=== PATIENT | male | born 1965 | race Caucasian/White ===

== ENCOUNTER 2016-11-11 06:02 | Emergency (ER) | payer SELFPAY ==
[2016-11-11] VITALS (7 sets, daily range): BP systolic 105–248; BP diastolic 58–111; PULSE 89–118; RESP 16–18; TEMP 97.8; O2SAT 96–99
[~2016-11-11 06:02] MED LIST: AMOX500T PO; CITA-48 PO; CITA20TA4 PO; CLON.1 PO; CORTIS10A RIGHT EAR; GLIP5TAB8 PO; LISI-357 PO; LORTA5 PO; METF1000 PO; ZOCO40TA PO
[2016-11-11] MEDS ORDERED: METF1000 PO (06:31)
[2016-11-11] MEDS ORDERED: VYTO10TA8 PO (06:31)
[2016-11-11] MEDS ORDERED: GLIP5TAB8 PO (06:31)
[2016-11-11] MEDS ORDERED: LANTUS2P SQ ×2 (06:31→12:56)
[2016-11-11] MEDS ORDERED: CYCL5TAB PO (06:31)
[2016-11-11] MEDS ORDERED: CLON1TAB PO (06:31)
[2016-11-11] MEDS ORDERED: FLUO1TAB3 PO (06:31)
[2016-11-11] MEDS ORDERED: LISI-515 PO (06:31)
[2016-11-11] MEDS ORDERED: TRAM50TA PO (06:31)
[2016-11-11] MEDS ORDERED: FLUO20CA12 PO (06:31)
--- NOTE | 2016-11-11 07:01 | RADRPT ---
EXAM DATE/TIME: 11/11/2016 06:39 [facility] COMPARISON: CHEST SINGLE AP, November 29, 2013, 4:17. INDICATIONS : Chest pain. MEDICAL HISTORY : Diabetes mellitus type II. SURGICAL HISTORY : None. ENCOUNTER: Initial ACUITY: 1 day PAIN SCORE: 4/10 LOCATION: Bilateral chest FINDINGS: A single view of the chest demonstrates the lungs to be symmetrically aerated without evidence of mas s, infiltrate or effusion. The cardiomediastinal contours are unremarkable. Osseous structures are intact. CONCLUSION: No acute disease. Wilner Gomez MD FACR on November 11, 2016 at 6:59 Board Certified Radiologist. This report was verified electronically.
[2016-11-11] MEDS ORDERED: SODIUM CHLOR 0.9% 1000 ML INJ 1,000 ML IV SCH (07:08)
--- NOTE | 2016-11-11 07:13 | PD ---
HPI Chief Complaint: Chest Pain Time Seen by Provider: 07:00 Travel History International Travel<30 days: No Contact w/Intl Traveler<30days: No Traveled to known affect area: No History of Present Illness HPI The patient is a 51-year-old male who presents to the emergency department for epigastric abdominal pain. The patient states he was awakened several hours prior to arrival with epigastric abdominal pain that radiates up into the substernal chest, burning, associated with mild nausea, but no vomiting. The patient does have a history of similar pain in the past secondary to gastritis. The patient also notes a history of hypertension, hyperlipidemia and diabetes. The patient has been out of his Lantus for the last 2 days. Continues to take his metformin and glyburide. The patient states his blood sugars have been running in the 400s. He denies any previous history of CAD or previous [place]. He denies any history of dissection, pancreatitis, or pulmonary embolism. The patient's symptoms are moderate, there are no current alleviating or exacerbating factors. The patient's primary physician is at the [facility]. PFSH Past Medical History Asthma: Yes Anxiety: Yes Depression: Yes Cardiovascular Problems: Yes High Cholesterol: Yes Diabetes: Yes Patient Takes Glucophage: No Diminished Hearing: No Endocrine: Yes Gastrointestinal Disorders: Yes (-IBS) GERD: Yes Glaucoma: No Genitourinary: No Hypertension: Yes Immune Disorder: No Implanted Vascular Access Dvce: No Musculoskeletal: No Neurologic: No Psychiatric: No Reproductive: No Respiratory: Yes Immunizations Current: No Migraines: Yes Thyroid Disease: No Past Surgical History Insulin Pump: No Joint Replacement: No Oral Surgery: Yes Pacemaker: No Other Surgery: Yes (DENTAL SURGERY) Social History Alcohol Use: No Tobacco Use: No Substance Use: No Allergies-Medications (Allergen,Severity, Reaction): Coded Allergies: Sulfa (Sulfonamide Antibiotics) (Unverified Allergy, Severe, Shortness of Breath, 11/11/16) PT STATED IT CAUSED ASTHMA ATTACK, SOB, ANXIOUS sulfamethoxazole (Unverified Allergy, Severe, RASH , TROUBLE BREATHING , ) trimethoprim (Unverified Allergy, Severe, RASH , TROUBLE BREATHING , ) Reported Meds & Prescriptions Reported Meds & Active Scripts Active Reported Lisinopril 20 Mg Tab 20 Mg PO BID Vytorin (Ezetimibe-Simvastatin) 10-20 Mg Tab 1 Tab PO HS Lantus Inj (Insulin Glargine) 1,000 Unit/10 Ml Vial 22 Units SQ BID Glipizide 5 Mg Tab 5 Mg PO DAILY Take 30 minutes before a meal Metformin (Metformin HCl) 1,000 Mg Tab 1,000 Mg PO BIDPC With meals Fluoxetine (Fluoxetine HCl) 20 Mg Tab 20 Mg PO HS Fluoxetine (Fluoxetine HCl) 20 Mg Capsule 40 Mg PO DAILY Tramadol (Tramadol HCl) 50 Mg Tab 50 Mg PO Q4H PRN Flexeril (Cyclobenzaprine HCl) 5 Mg Tab 5 Mg PO TID Clonazepam 1 Mg Tab 1 Mg PO BID Review of Systems Except as stated in HPI: all other systems reviewed are Neg General / Constitutional: No: Fever HENT: Positive: Lightheadedness Cardiovascular: Positive: Chest Pain or Discomfort Respiratory: No: Shortness of Breath Gastrointestinal: Positive: Nausea, Abdominal Pain, No: Vomiting, Diarrhea Musculoskeletal: Positive: Weakness Neurologic: Positive: Dizziness Physical Exam Narrative GENERAL: Awake, alert, pleasant 51-year-old male who appears his stated age and appears in moderate distress. SKIN: Focused skin assessment warm/dry. HEAD: Atraumatic. Normocephalic. EYES: Pupils equal and round. No scleral icterus. No injection or drainage. ENT: No nasal bleeding or discharge. Mucous membranes pink and moist. NECK: Trachea midline. No JVD. CARDIOVASCULAR: Regular, tachycardic with a heart rate of 115. RESPIRATORY: No accessory muscle use. Clear to auscultation. Breath sounds equal bilaterally. GASTROINTESTINAL: Abdomen soft, mild epigastric tenderness, obese. No rebound tenderness. MUSCULOSKELETAL: No obvious deformities. No clubbing. No cyanosis. No edema. NEUROLOGICAL: Awake and alert. No obvious cranial nerve deficits. Motor grossly within normal limits. Normal speech. PSYCHIATRIC: Appropriate mood and affect; insight and judgment normal. Data Data Last Documented VS Vital Signs Date Time Temp Pulse Resp B/P (MAP) Pulse Ox O2 Delivery O2 Flow Rate FiO2 11/11/16 12:21 16 11/11/16 11:21 Room Air 11/11/16 11:21 90 138/80 (99) 96 11/11/16 06:20 97.8 Orders Orders Electrocardiogram (11/11/16 06:35) Complete Blood Count With Diff (11/11/16 06:35) Basic Metabolic Panel (Bmp) (11/11/16 06:35) Ckmb (Isoenzyme) Profile (11/11/16 06:35) Troponin I (11/11/16 06:35) Chest, Single Ap (11/11/16 06:35) Iv Access Insert/Monitor (11/11/16 06:35) Ecg Monitoring (11/11/16 06:35) Oxygen Administration (11/11/16 06:35) Oximetry (11/11/16 06:35) Hepatic Functional Panel (11/11/16 07:07) Lipase (11/11/16 07:07) Labetalol Inj (Trandate Inj) (11/11/16 07:15) Morphine Inj (Morphine Inj) (11/11/16 07:15) Ondansetron Inj (Zofran Inj) (11/11/16 07:15) Sodium Chlor 0.9% 1000 Ml Inj (Ns 1000 M (11/11/16 07:08) Sodium Chloride 0.9% Flush (Ns Flush) (11/11/16 07:15) Famotidine Inj (Pepcid Inj) (11/11/16 07:15) Al-Mag Hy-Si 40-40-4 Mg/Ml Liq (Mag-Al P (11/11/16 07:15) Lidocaine 2% Viscous (Xylocaine 2% Visco (11/11/16 07:15) Ct Abd/Pel W/O Iv Contrast (11/11/16 ) Lactic Acid (11/11/16 08:05) Beta Hydroxybutyrate (Acetone) (11/11/16 08:05) Sodium Chlor 0.9% 1000 Ml Inj (Ns 1000 M (11/11/16 08:15) Sodium Chlorid 0.9% 500 Ml Inj (Ns 500 M (11/11/16 08:15) Morphine Inj (Morphine Inj) (11/11/16 08:15) Resp Blood Gas Venous (11/11/16 ) Insulin Human Regular Inj (Novolin R Inj (11/11/16 09:15) Sodium Chlor 0.9% 1000 Ml Inj (Ns 1000 M (11/11/16 09:15) Arterial Blood Gas (Abg) (11/11/16 08:57) Insulin Detemir Inj (Levemir Inj) (11/11/16 09:15) Basic Metabolic Panel (Bmp) (11/11/16 12:00) Sodium Chlor 0.9% 1000 Ml Inj (Ns 1000 M (11/11/16 09:30) Labs Laboratory Tests Test 11/11/16 07:20 11/11/16 08:28 11/11/16 08:57 11/11/16 12:00 White Blood Count 8.6 TH/MM3 Red Blood Count 5.44 MIL/MM3 Hemoglobin 16.7 GM/DL Hematocrit 50.9 % Mean Corpuscular Volume 93.6 FL Mean Corpuscular Hemoglobin 30.7 PG Mean Corpuscular Hemoglobin Concent 32.8 % Red Cell Distribution Width 13.2 % Platelet Count 353 TH/MM3 Mean Platelet Volume 7.9 FL Neutrophils (%) (Auto) 66.1 % Lymphocytes (%) (Auto) 20.8 % Monocytes (%) (Auto) 7.2 % Eosinophils (%) (Auto) 4.9 % Basophils (%) (Auto) 1.0 % Neutrophils # (Auto) 5.7 TH/MM3 Lymphocytes # (Auto) 1.8 TH/MM3 Monocytes # (Auto) 0.6 TH/MM3 Eosinophils # (Auto) 0.4 TH/MM3 Basophils # (Auto) 0.1 TH/MM3 CBC Comment DIFF FINAL Differential Comment Blood Urea Nitrogen 9 MG/DL 6 MG/DL Creatinine 1.10 MG/DL 1.10 MG/DL Random Glucose 310 MG/DL 264 MG/DL Calcium Level 8.8 MG/DL 8.1 MG/DL Sodium Level 132 MEQ/L 135 MEQ/L Potassium Level 4.1 MEQ/L 3.8 MEQ/L Chloride Level 99 MEQ/L 104 MEQ/L Carbon Dioxide Level 14.5 MEQ/L 19.3 MEQ/L Anion Gap 19 MEQ/L 12 MEQ/L Estimat Glomerular Filtration Rate 71 ML/MIN 71 ML/MIN Total Creatine Kinase 62 U/L Troponin I 0.03 NG/ML B-Hydroxybutyrate 5.18 MMOL/L Lactic Acid Level 0.8 mmol/L Total Bilirubin 0.5 MG/DL Direct Bilirubin 0.1 MG/DL Indirect Bilirubin 0.4 MG/DL Aspartate Amino Transf (AST/SGOT) 26 U/L Alanine Aminotransferase (ALT/SGPT) 36 U/L Alkaline Phosphatase 113 U/L Total Protein 7.1 GM/DL Albumin 3.4 GM/DL Lipase 140 U/L Blood Gas Puncture Site RT BRACHIAL Blood Gas Patient Temperature 98.6 Blood Gas HCO3 16 mmol/L Blood Gas Base Excess -9.9 mmol/L Blood Gas Oxygen Saturation 94 % Arterial Blood pH 7.28 Arterial Blood Partial Pressure CO2 34 mmHG Arterial Blood Partial Pressure O2 94 mmHG Arterial Blood Oxygen Content 20.5 Vol % Arterial Blood Carboxyhemoglobin 1.8 % Arterial Blood Methemoglobin 1.2 % Blood Gas Hemoglobin 15.4 G/DL Oxygen Delivery Device NONE Blood Gas Inspired Oxygen 21 % MDM Medical Decision Making Medical Screen Exam Complete: Yes Emergency Medical Condition: Yes Medical Record Reviewed: Yes Interpretation(s) EKG reveals sinus tachycardia with a heart rate of 109. Nonspecific T-wave changes. Last Impressions Chest X-Ray 11/11/16 0635 Signed Impressions: Service Date/Time: Friday, November 11, 2016 06:39 - CONCLUSION: No acute disease. Wilner Gomez MD FACR CT of the abdomen and pelvis reveals no acute CT findings to explain patient's epigastric pain. Normal appendix. Laboratory Tests Test 11/11/16 07:20 11/11/16 08:28 11/11/16 08:57 11/11/16 12:00 White Blood Count 8.6 TH/MM3 Red Blood Count 5.44 MIL/MM3 Hemoglobin 16.7 GM/DL Hematocrit 50.9 % Mean Corpuscular Volume 93.6 FL Mean Corpuscular Hemoglobin 30.7 PG Mean Corpuscular Hemoglobin Concent 32.8 % Red Cell Distribution Width 13.2 % Platelet Count 353 TH/MM3 Mean Platelet Volume 7.9 FL Neutrophils (%) (Auto) 66.1 % Lymphocytes (%) (Auto) 20.8 % Monocytes (%) (Auto) 7.2 % Eosinophils (%) (Auto) 4.9 % Basophils (%) (Auto) 1.0 % Neutrophils # (Auto) 5.7 TH/MM3 Lymphocytes # (Auto) 1.8 TH/MM3 Monocytes # (Auto) 0.6 TH/MM3 Eosinophils # (Auto) 0.4 TH/MM3 Basophils # (Auto) 0.1 TH/MM3 CBC Comment DIFF FINAL Differential Comment Blood Urea Nitrogen 9 MG/DL 6 MG/DL Creatinine 1.10 MG/DL 1.10 MG/DL Random Glucose 310 MG/DL 264 MG/DL Calcium Level 8.8 MG/DL 8.1 MG/DL Sodium Level 132 MEQ/L 135 MEQ/L Potassium Level 4.1 MEQ/L 3.8 MEQ/L Chloride Level 99 MEQ/L 104 MEQ/L Carbon Dioxide Level 14.5 MEQ/L 19.3 MEQ/L Anion Gap 19 MEQ/L 12 MEQ/L Estimat Glomerular Filtration Rate 71 ML/MIN 71 ML/MIN Total Creatine Kinase 62 U/L Troponin I 0.03 NG/ML B-Hydroxybutyrate 5.18 MMOL/L Lactic Acid Level 0.8 mmol/L Total Bilirubin 0.5 MG/DL Direct Bilirubin 0.1 MG/DL Indirect Bilirubin 0.4 MG/DL Aspartate Amino Transf (AST/SGOT) 26 U/L Alanine Aminotransferase (ALT/SGPT) 36 U/L Alkaline Phosphatase 113 U/L Total Protein 7.1 GM/DL Albumin 3.4 GM/DL Lipase 140 U/L Blood Gas Puncture Site RT BRACHIAL Blood Gas Patient Temperature 98.6 Blood Gas HCO3 16 mmol/L Blood Gas Base Excess -9.9 mmol/L Blood Gas Oxygen Saturation 94 % Arterial Blood pH 7.28 Arterial Blood Partial Pressure CO2 34 mmHG Arterial Blood Partial Pressure O2 94 mmHG Arterial Blood Oxygen Content 20.5 Vol % Arterial Blood Carboxyhemoglobin 1.8 % Arterial Blood Methemoglobin 1.2 % Blood Gas Hemoglobin 15.4 G/DL Oxygen Delivery Device NONE Blood Gas Inspired Oxygen 21 % Differential Diagnosis Differential diagnosis includes gastritis, pancreatitis, GERD, hiatal hernia, dissection, inferior myocardial infarction, pulmonary embolism, perforated viscus. Narrative Course IV was established, labs are drawn and sent, and the patient was placed on cardiac telemetry monitoring and continuous pulse oximetry monitoring. EKG was ordered and interpreted. Chest x-ray was obtained. The patient was a administer morphine, Zofran, Pepcid, and GI cocktail. The patient was also placed on IV fluids. The patient's chest x-ray was unremarkable. The patient' s EKG reveals sinus tachycardia with a heart rate of 109. The patient was reevaluated at 8:12 AM, his epigastric burning pain has resolved. However, he continues to have cramping abdominal pain. Therefore, the patient was administered a second dose of morphine. The patient's CO2 is low at 120 at 14.5 , anion gap is 19, therefore, lactic gas and a beta hydroxy were ordered. The patient is not hypoxic, heart rate came down to 90, I doubt pulmonary embolism with no shortness of breath and symptoms mostly consisting of epigastric abdominal pain and cramping. The patient may have early DKA, he normally takes Lantus 22 units twice a day, last took Lantus 3 days ago. However, he is also on oral diabetic medications. The patient's VBG revealed a pH is 7.277, with beta hydroxy greater than 5, anion gap at 19, probable early DKA. Therefore, the patient was administered 6 units insulin intravenously, another liter of IV fluids, and Levemir 22 units. A repeat BMP will be performed at noon to evaluate the patient's anion gap. The patient's anion gap went from 19 at 12, CO2 elevated to 19.3, his symptoms had significantly improved. He did receive long-acting insulin in the emergency department and I will refill his Lantus and Prozac. Diagnosis Primary Impression: DKA (diabetic ketoacidoses) Qualified Codes: E13.10 - Other specified diabetes mellitus with ketoacidosis without coma Patient Instructions: General Instructions Additional Instructions: Medications as directed. Follow-up with your primary physician. Return if symptoms worsen or progress. Med/Other Pt SpecificInfo: Prescription(s) given Scripts Insulin Glargine Inj (Lantus Inj) 1,000 Unit/10 Ml Vial 22 UNITS SQ BID for Blood Sugar Management, #1 VIAL 3 Refills Prov: Vikash Ibarra MD 11/11/16 Fluoxetine (Prozac) 20 Mg Cap 20 MG PO DAILY, #30 CAP 0 Refills Prov: Vikash Ibarra MD 11/11/16 Disposition: 01 DISCHARGE HOME Condition: Stable Vikash Ibarra MD Nov 11, 2016 07:13
[2016-11-11] MEDS ORDERED: FAMOTIDINE 20 MG/2 ML VIAL IV PUSH ONE (07:15)
[2016-11-11] MEDS ORDERED: ONDANSETRON HCL 4 MG/2 ML VIAL IV PUSH ONE (07:15)
[2016-11-11] MEDS ORDERED: MORPHINE SULFATE 4 MG/ML INJ IV PUSH ONE ×2 (07:15→08:15)
[2016-11-11] MEDS ORDERED: SODIUM CHLORIDE 0.9% FLUSH 10 ML FLUSH IV FLUSH PRN (07:15)
[2016-11-11] MEDS ORDERED: LABETALOL HCL 100 MG/20 ML VIAL IV PUSH ONE (07:15)
[2016-11-11] MEDS ORDERED: ALUMINUM/MAGNESIUM/SIMETH 30 ML CUP PO ONE (07:15)
[2016-11-11] MEDS ORDERED: LIDOCAINE VISCOUS 2% SOLN 15 ML UDC PO ONE (07:15)
[2016-11-11 07:28] LABS: AUTOMATED NEUTROPHIL # 5.7 TH/MM3 (1.8-7.7); BASOPHIL # 0.1 TH/MM3 (0-0.2); EOSINOPHIL # 0.4 TH/MM3 (0-0.4); EOSINOPHIL % 4.9 % (0.0-4.0); HEMATOCRIT 50.9 % (39.0-51.0); HEMO FLAGS DIFF FINAL; LYMPH % 20.8 % (9.0-44.0); LYMPHOCYTE # 1.8 TH/MM3 (1.0-4.8); MEAN CELL VOLUME 93.6 FL (80.0-100.0); MEAN CORPUSCULAR HEMOGLOBIN 30.7 PG (27.0-34.0); MEAN CORPUSCULAR HGB CONC 32.8 % (32.0-36.0); MONO % 7.2 % (0.0-8.0); NEUT % 66.1 % (16.0-70.0); PLATELET COUNT 353 TH/MM3 (150-450); RED BLOOD COUNT 5.44 MIL/MM3 (4.50-5.90); RED CELL DISTRIBUTION WIDTH 13.2 % (11.6-17.2); WHITE BLOOD COUNT 8.6 TH/MM3 (4.0-11.0)
[2016-11-11 07:33] LABS: POTASSIUM 4.1 MEQ/L (3.5-5.1)
[2016-11-11 07:37] LABS: BICARBONATE 14.5 MEQ/L (21.0-32.0)
--- NOTE | 2016-11-11 08:00 | RADRPT ---
EXAM DATE/TIME: 11/11/2016 17:54 [facility] COMPARISON: No previous studies available for comparison. INDICATIONS : Epigastric pain. ORAL CONTRAST: No oral contrast ingested. RADIATION DOSE: 22.36 CTDIvol (mGy) MEDICAL HISTORY : Hypertension. Gastroesophageal reflux disease. Diabetes. SURGICAL HISTORY : None. ENCOUNTER: Initial ACUITY: 1 day PAIN SCALE: 4/10 LOCATION: upper quadrant TECHNIQUE: Volumetric scanning of the abdomen and pelvis was performed. Using automated exposure control and ad justment of the mA and/or kV according to patient size, radiation dose was kept as low as reasonably achievable to obtain optimal diagnostic quality images. DICOM format image data is available electro nically for review and comparison. FINDINGS: LOWER LUNGS: The visualized lower lungs are clear. LIVER: Homogeneous density without lesion. There is no dilation of the biliary tree. No calcified gallston es. SPLEEN: Normal size without lesion. PANCREAS: Within normal limits. KIDNEYS: Normal in size and shape. There is no mass, stone, or hydronephrosis. ADRENAL GLANDS: Within normal limits. VASCULAR: There is no aortic aneurysm. BOWEL/MESENTERY: The stomach, small bowel, and colon demonstrate no acute abnormality. Appendix appears normal. There is no free intraperitoneal air or fluid. ABDOMINAL WALL: Within normal limits. RETROPERITONEUM: There is no lymphadenopathy. BLADDER: No wall thickening or mass. REPRODUCTIVE: Within normal limits. INGUINAL: There is no lymphadenopathy or hernia. MUSCULOSKELETAL: Within normal limits for patient age. CONCLUSION: 1. No acute CT finding to explain patient's epigastric pain. 2. Normal appendix. Ebenezer Brambila MD on November 11, 2016 at 7:55 Board Certified Radiologist. This report was verified electronically.
[2016-11-11] MEDS ORDERED: SODIUM CHLORID 0.9% 500 ML INJ 500 ML IV ONE (08:15)
[2016-11-11] MEDS ORDERED: SODIUM CHLOR 0.9% 1000 ML INJ 1,000 ML IV ONE ×3 (08:15→09:30)
[2016-11-11 09:05] LABS: INDIRECT BILIRUBIN 0.4 MG/DL (0.0-0.8); TOTAL BILIRUBIN ADULT 0.5 MG/DL (0.2-1.0)
[2016-11-11 09:09] LABS: BLOOD GAS BASE EXCESS -9.9 mmol/L (-2-2); BLOOD GAS CARBOXYHEMOGLOBIN 1.8 % (0-4); BLOOD GAS HCO3 16 mmol/L (22-26); BLOOD GAS METHEMOGLOBIN 1.2 % (0-2); BLOOD GAS O2 HGB SATURATION 94 % (90-100); BLOOD GAS OXYGEN CONTENT 20.5 Vol % (12.0-20.0); BLOOD GAS PCO2 34 mmHG (38-42); BLOOD GAS PO2 94 mmHG (61-120); BLOOD GAS TOTAL HGB 15.4 G/DL (12.0-16.0); TEMP CORR TO 98.6
[2016-11-11 09:11] LABS: CRITICAL VALUE YES; DRAW SITE RT BRACHIAL; FIO2 21 %; NUMBER OF ARTERIAL PUNCTURES 1; STAT YES; ULNAR PULSE PRESENT
[2016-11-11] MEDS ORDERED: INSULIN HUMAN REGULAR 1,000 UNITS/10 ML VIAL IV PUSH ONE (09:15)
[2016-11-11] MEDS ORDERED: INSULIN DETEMIR 100 UNITS/ML VIAL SQ SCH (09:15)
[2016-11-11 12:28] LABS: POTASSIUM 3.8 MEQ/L (3.5-5.1)
[2016-11-11 12:31] LABS: BICARBONATE 19.3 MEQ/L (21.0-32.0)
[2016-11-11] MEDS ORDERED: PROZ20CA11 PO (12:56)
--- NOTE | 2016-11-11 13:59 | EKG ---
Date Performed: 11/11/2016 Time Performed: 06:21:20 PTAGE: 51 years EKG: SINUS TACHYCARDIA NONSPECIFIC T-WAVE ABNORMALITY ABNORMAL RHYTHM ECG Compared to prior trac ing no significant change PREVIOUS TRACING : 11/24/2013 06.39 DOCTOR: Tasneem Walters Interpretating Date/Time 11/11/2016 13:55:15
== END 2016-11-11 13:15 | disposition home or self-care (01) ==
LOC: PHEFT 06:02 → PHED 13:15
DX: E13.10 Other specified diabetes mellitus with ketoacidosis without coma (principal); E78.5 Hyperlipidemia, unspecified; I10 Essential (primary) hypertension; J45.909 Unspecified asthma, uncomplicated; K21.9 Gastro-esophageal reflux disease without esophagitis
CPT/HCPCS: 36600; 71010; 74176; 80048; 80076; 82010; 82550; 82805; 83605; 83690; 84484; 85025; 93005; 96361; 96372; 96374; 96375; 96376; 99285; J1815; J2270; J2405; J7030; J7040

== ENCOUNTER 2016-11-15 17:43 | Emergency (ER) | payer SELFPAY ==
[~2016-11-15 17:43] MED LIST changes: +CLON1TAB PO; +CYCL5TAB PO; +FLUO1TAB3 PO; +FLUO20CA12 PO; +LANTUS2P SQ; +LISI-515 PO; +PROZ20CA11 PO; +TRAM50TA PO; +VYTO10TA8 PO
[2016-11-15 17:48] VITALS: BP 145/97; PULSE 119; RESP 24; TEMP 98.8; O2SAT 97
--- NOTE | 2016-11-15 18:25 | PD ---
HPI Chief Complaint: Abdominal Pain Time Seen by Provider: 18:15 Travel History International Travel<30 days: No Contact w/Intl Traveler<30days: No Traveled to known affect area: No History of Present Illness HPI 51 YO M with PMH of DM presents to the ED for evaluation of ~2 hour history of 8 /10 cramping abdominal pain that radiates to the left chest. Gradual onset. No alleviating factors reported. Patient states that the pains worsened by certain movements. He denies fevers, chills, palpitations, shortness of breath , nausea, vomiting. He endorses recent history of constipation, states that he took GoLYTELY and his last bowel movement was yesterday. He was able to eat lunch and breakfast today. No treatment attempt at home. PFSH Past Medical History Asthma: Yes Anxiety: Yes Depression: Yes Cardiovascular Problems: Yes High Cholesterol: Yes Diabetes: Yes Diminished Hearing: No Endocrine: Yes Gastrointestinal Disorders: Yes (-IBS) GERD: Yes Glaucoma: No Genitourinary: No Hypertension: Yes Immune Disorder: No Implanted Vascular Access Dvce: No Musculoskeletal: No Neurologic: No Psychiatric: No Reproductive: No Respiratory: Yes Immunizations Current: No Migraines: Yes Thyroid Disease: No Past Surgical History Insulin Pump: No Joint Replacement: No Oral Surgery: Yes Pacemaker: No Other Surgery: Yes (DENTAL SURGERY) Social History Alcohol Use: No Tobacco Use: No Substance Use: No Allergies-Medications (Allergen,Severity, Reaction): Coded Allergies: Sulfa (Sulfonamide Antibiotics) (Unverified Allergy, Severe, Shortness of Breath, 11/15/16) PT STATED IT CAUSED ASTHMA ATTACK, SOB, ANXIOUS sulfamethoxazole (Unverified Allergy, Severe, RASH , TROUBLE BREATHING , ) trimethoprim (Unverified Allergy, Severe, RASH , TROUBLE BREATHING , ) Reported Meds & Prescriptions Reported Meds & Active Scripts Active Reported [place] Carbonate 150 Mg Cap 150 Mg PO BID Lisinopril 20 Mg Tab 20 Mg PO BID Vytorin (Ezetimibe-Simvastatin) 10-20 Mg Tab 1 Tab PO HS Lantus Inj (Insulin Glargine) 1,000 Unit/10 Ml Vial 22 Units SQ BID Glipizide 5 Mg Tab 5 Mg PO DAILY Take 30 minutes before a meal Metformin (Metformin HCl) 1,000 Mg Tab 1,000 Mg PO BIDPC With meals Fluoxetine (Fluoxetine HCl) 20 Mg Tab 20 Mg PO HS Fluoxetine (Fluoxetine HCl) 20 Mg Capsule 40 Mg PO IN THE AM Tramadol (Tramadol HCl) 50 Mg Tab 50 Mg PO Q4H PRN Flexeril (Cyclobenzaprine HCl) 5 Mg Tab 5 Mg PO TID Clonazepam 1 Mg Tab 1 Mg PO BID Review of Systems Except as stated in HPI: all other systems reviewed are Neg Physical Exam Narrative GENERAL: Morbidly obese white male in no acute distress. SKIN: Focused skin assessment warm/dry. HEAD: Normocephalic. EYES: No scleral icterus. No injection or drainage. NECK: Supple, trachea midline. No JVD or lymphadenopathy. CARDIOVASCULAR: Regular rate and rhythm without murmurs, gallops, or rubs. CHEST: Nontender throughout without deformity or crepitus. RESPIRATORY: Breath sounds equal bilaterally. No accessory muscle use. GASTROINTESTINAL: Abdomen protuberant, soft, nondistended. Tender to palpation of the left upper quadrant. MUSCULOSKELETAL: No cyanosis. Trace edema in the bilateral lower extremities. BACK: Nontender without obvious deformity. No CVA tenderness. Data Data Last Documented VS Vital Signs Date Time Temp Pulse Resp B/P (MAP) Pulse Ox O2 Delivery O2 Flow Rate FiO2 11/15/16 22:05 11/15/16 20:50 102 20 95 Room Air 11/15/16 17:48 98.8 Orders Orders Famotidine Inj (Pepcid Inj) (11/15/16 18:30) Al-Mag Hy-Si 40-40-4 Mg/Ml Liq (Mag-Al P (11/15/16 18:30) Lidocaine 2% Viscous (Xylocaine 2% Visco (11/15/16 18:30) Complete Blood Count With Diff (11/15/16 18:32) Comprehensive Metabolic Panel (11/15/16 18:32) Lipase (11/15/16 18:32) Lactic Acid (11/15/16 18:32) Urinalysis - C+S If Indicated (11/15/16 18:32) Iv Access Insert/Monitor (11/15/16 18:32) Ecg Monitoring (11/15/16 18:32) Oximetry (11/15/16 18:32) Sodium Chloride 0.9% Flush (Ns Flush) (11/15/16 18:45) Electrocardiogram (11/15/16 18:32) Lorazepam Inj (Ativan Inj) (11/15/16 20:15) Labs Laboratory Tests Test 11/15/16 18:35 11/15/16 20:05 White Blood Count 7.1 TH/MM3 Red Blood Count 4.96 MIL/MM3 Hemoglobin 15.5 GM/DL Hematocrit 45.8 % Mean Corpuscular Volume 92.4 FL Mean Corpuscular Hemoglobin 31.2 PG Mean Corpuscular Hemoglobin Concent 33.7 % Red Cell Distribution Width 13.6 % Platelet Count 307 TH/MM3 Mean Platelet Volume 8.2 FL Neutrophils (%) (Auto) 58.5 % Lymphocytes (%) (Auto) 26.2 % Monocytes (%) (Auto) 8.8 % Eosinophils (%) (Auto) 5.5 % Basophils (%) (Auto) 1.0 % Neutrophils # (Auto) 4.1 TH/MM3 Lymphocytes # (Auto) 1.8 TH/MM3 Monocytes # (Auto) 0.6 TH/MM3 Eosinophils # (Auto) 0.4 TH/MM3 Basophils # (Auto) 0.1 TH/MM3 CBC Comment AUTO DIFF Differential Total Cells Counted 100 Neutrophils % (Manual) 60 % Band Neutrophils % 10 % Lymphocytes % 15 % Monocytes % 7 % Eosinophils % 5 % Basophils % 1 % Neutrophils # (Manual) 5.1 TH/MM3 Metamyelocytes 2 % Differential Comment FINAL DIFF MANUAL Platelet Estimate NORMAL Platelet Morphology Comment NORMAL Blood Urea Nitrogen 8 MG/DL Creatinine 1.00 MG/DL Random Glucose 287 MG/DL Total Protein 7.2 GM/DL Albumin 3.8 GM/DL Calcium Level 8.8 MG/DL Alkaline Phosphatase 123 U/L Aspartate Amino Transf (AST/SGOT) 25 U/L Alanine Aminotransferase (ALT/SGPT) 33 U/L Total Bilirubin 0.4 MG/DL Sodium Level 134 MEQ/L Potassium Level 3.6 MEQ/L Chloride Level 102 MEQ/L Carbon Dioxide Level 19.7 MEQ/L Anion Gap 12 MEQ/L Estimat Glomerular Filtration Rate 79 ML/MIN Lactic Acid Level 0.8 mmol/L Lipase 122 U/L Urine Color YELLOW Urine Turbidity CLEAR Urine pH 6.0 Urine Specific [place] 1.040 Urine Protein 100 mg/dL Urine Glucose (UA) 1000 mg/dL Urine Ketones 150 mg/dL Urine Occult Blood NEG Urine Nitrite NEG Urine Bilirubin NEG Urine Urobilinogen LESS THAN 2.0 MG/DL Urine Leukocyte Esterase NEG Urine RBC LESS THAN 1 /hpf Urine WBC LESS THAN 1 /hpf Urine Mucus FEW /lpf Microscopic Urinalysis Comment CULT NOT INDICATED MDM Medical Decision Making Medical Screen Exam Complete: Yes Emergency Medical Condition: Yes Differential Diagnosis chronic abdominal pain versus pancreatitis versus cholecystitis versus anxiety versus malingering versus other Narrative Course 51 YO M with PMH of DM, HTN presents to the ED for evaluation of ~2 hour history of 8/10 cramping abdominal pain that radiates to the left chest. Gradual onset. No alleviating factors reported. Patient states that the pains worsened by certain movements. He denies fevers, chills, palpitations, shortness of breath, nausea, vomiting. He endorses recent history of constipation, states that he took GoLYTELY and his last bowel movement was yesterday. He was able to eat lunch and breakfast today. Vitals reviewed. Patient is hypertensive on presentation. Physical exam reveals a nontoxic- appearing morbidly obese white male in no acute distress. There is no tenderness of the abdomen. No CVA tenderness. No lower extremity edema. He is quite anxious appearing and this may be a component of the pain that he describes. Patient was administered a GI cocktail and 1 mg Ativan IV. EKG: Rate 108, sinus tachycardia. Normal intervals. Normal axis. No acute ST changes. Reviewed by Dr. Donohue. No concerning abnormalities of the CBC, CMP or UA. Reviewing the record reveals that the patient had a negative abdominal CT earlier this month after presenting with similar complaint. I don't think there is anything acute here. He is safe for follow-up with his primary care provider. I discussed the patient with Dr. [place] who is in agreement. The patient is stable and discharged home. Diagnosis Primary Impression: Abdominal pain Qualified Codes: R10.9 - Unspecified abdominal pain Referrals: Primary Care Physician Patient Instructions: Abdominal Pain (ED), General Instructions Additional Instructions: Rest, hydrate. Return to normal, gentle activity as tolerated. Resume all at home medications as previously prescribed. Follow up with your primary care. Return to the ED for any urgent or emergent medical condition. Disposition: 01 DISCHARGE HOME Condition: Stable [place] Nov 15, 2016 18:25
[2016-11-15] MEDS ORDERED: LIDOCAINE VISCOUS 2% SOLN 15 ML UDC PO ONE (18:30)
[2016-11-15] MEDS ORDERED: ALUMINUM/MAGNESIUM/SIMETH 30 ML CUP PO ONE (18:30)
[2016-11-15] MEDS ORDERED: FAMOTIDINE 20 MG/2 ML VIAL IV PUSH ONE (18:30)
[2016-11-15] MEDS ORDERED: SODIUM CHLORIDE 0.9% FLUSH 10 ML FLUSH IV FLUSH PRN (18:45)
[2016-11-15 19:10] LABS: AUTOMATED NEUTROPHIL # 4.1 TH/MM3 (1.8-7.7); BASOPHIL # 0.1 TH/MM3 (0-0.2); EOSINOPHIL # 0.4 TH/MM3 (0-0.4); EOSINOPHIL % 5.5 % (0.0-4.0); HEMATOCRIT 45.8 % (39.0-51.0); LYMPH % 26.2 % (9.0-44.0); LYMPHOCYTE # 1.8 TH/MM3 (1.0-4.8); MEAN CELL VOLUME 92.4 FL (80.0-100.0); MEAN CORPUSCULAR HEMOGLOBIN 31.2 PG (27.0-34.0); MEAN CORPUSCULAR HGB CONC 33.7 % (32.0-36.0); MONO % 8.8 % (0.0-8.0); NEUT % 58.5 % (16.0-70.0); PLATELET COUNT 307 TH/MM3 (150-450); RED BLOOD COUNT 4.96 MIL/MM3 (4.50-5.90); RED CELL DISTRIBUTION WIDTH 13.6 % (11.6-17.2); WHITE BLOOD COUNT 7.1 TH/MM3 (4.0-11.0)
[2016-11-15 19:20] LABS: HEMO FLAGS AUTO DIFF
[2016-11-15 19:27] LABS: ALT (GPT) 33 U/L (12-78); ANION GAP 12 MEQ/L (5-15); AST (GOT) 25 U/L (15-37); BICARBONATE 19.7 MEQ/L (21.0-32.0); BLOOD UREA NITROGEN 8 MG/DL (7-18); CHLORIDE 102 MEQ/L (98-107); GLOMERULAR FILTRATION RATE 79 ML/MIN (>89); POTASSIUM 3.6 MEQ/L (3.5-5.1); SODIUM (NA) 134 MEQ/L (136-145)
[2016-11-15 19:29] LABS: ALKALINE PHOSPHATASE 123 U/L (45-117); TOTAL BILIRUBIN ADULT 0.4 MG/DL (0.2-1.0)
[2016-11-15] MEDS ORDERED: LORazepam 2 MG/ML VIAL IM ONE (19:45)
[2016-11-15 19:54] VITALS: BP 220/110; PULSE 107; RESP 20; O2SAT 96
[2016-11-15 19:57] LABS: BANDS 10 % (0-6); BASOPHILS 1 % (0-2); EOSINOPHILS 5 % (0-4); METAMYELOCYTES 2 % (0-1); NEUTROPHIL # MANUAL DIFF 5.1 TH/MM3 (1.8-7.7); POLYS (SEG NEUTROPHILS) 60 % (16-70); WBC DIFF SAMPLE 100
[2016-11-15 19:58] LABS: PLATELET ESTIMATE SMEAR NORMAL (NORMAL); PLATELET MORPHOLOGY NORMAL (NORMAL); SCAN/DIFF FINAL DIFF MANUAL
[2016-11-15] MEDS ORDERED: LITH150C PO (20:13)
[2016-11-15] MEDS ORDERED: LORazepam 2 MG/ML VIAL IV PUSH ONE (20:15)
[2016-11-15 20:50] VITALS: BP 197/104; PULSE 102; RESP 20; O2SAT 95
[2016-11-15 21:16] LABS: BLOOD, URINE NEG (NEG); COMMENT (UR) CULT NOT INDICATED; CULTURE IF INDICATED CULT NOT INDICATED; GLUCOSE,URINE 1000 mg/dL (NEG); KETONE, URINE 150 mg/dL (NEG); MUCUS URINE FEW /lpf (OCC); NITRITE,URINE NEG (NEG); URINE COLOR YELLOW (YELLW/STRAW)
--- NOTE | 2016-11-15 21:44 | PD ---
Data Data Last Documented VS Vital Signs Date Time Temp Pulse Resp B/P (MAP) Pulse Ox O2 Delivery O2 Flow Rate FiO2 11/15/16 20:50 102 20 197/104 (135) 95 Room Air 11/15/16 17:48 98.8 Orders Orders Famotidine Inj (Pepcid Inj) (11/15/16 18:30) Al-Mag Hy-Si 40-40-4 Mg/Ml Liq (Mag-Al P (11/15/16 18:30) Lidocaine 2% Viscous (Xylocaine 2% Visco (11/15/16 18:30) Complete Blood Count With Diff (11/15/16 18:32) Comprehensive Metabolic Panel (11/15/16 18:32) Lipase (11/15/16 18:32) Lactic Acid (11/15/16 18:32) Urinalysis - C+S If Indicated (11/15/16 18:32) Iv Access Insert/Monitor (11/15/16 18:32) Ecg Monitoring (11/15/16 18:32) Oximetry (11/15/16 18:32) Sodium Chloride 0.9% Flush (Ns Flush) (11/15/16 18:45) Electrocardiogram (11/15/16 18:32) Lorazepam Inj (Ativan Inj) (11/15/16 20:15) Labs Laboratory Tests Test 11/15/16 18:35 11/15/16 20:05 White Blood Count 7.1 TH/MM3 Red Blood Count 4.96 MIL/MM3 Hemoglobin 15.5 GM/DL Hematocrit 45.8 % Mean Corpuscular Volume 92.4 FL Mean Corpuscular Hemoglobin 31.2 PG Mean Corpuscular Hemoglobin Concent 33.7 % Red Cell Distribution Width 13.6 % Platelet Count 307 TH/MM3 Mean Platelet Volume 8.2 FL Neutrophils (%) (Auto) 58.5 % Lymphocytes (%) (Auto) 26.2 % Monocytes (%) (Auto) 8.8 % Eosinophils (%) (Auto) 5.5 % Basophils (%) (Auto) 1.0 % Neutrophils # (Auto) 4.1 TH/MM3 Lymphocytes # (Auto) 1.8 TH/MM3 Monocytes # (Auto) 0.6 TH/MM3 Eosinophils # (Auto) 0.4 TH/MM3 Basophils # (Auto) 0.1 TH/MM3 CBC Comment AUTO DIFF Differential Total Cells Counted 100 Neutrophils % (Manual) 60 % Band Neutrophils % 10 % Lymphocytes % 15 % Monocytes % 7 % Eosinophils % 5 % Basophils % 1 % Neutrophils # (Manual) 5.1 TH/MM3 Metamyelocytes 2 % Differential Comment FINAL DIFF MANUAL Platelet Estimate NORMAL Platelet Morphology Comment NORMAL Blood Urea Nitrogen 8 MG/DL Creatinine 1.00 MG/DL Random Glucose 287 MG/DL Total Protein 7.2 GM/DL Albumin 3.8 GM/DL Calcium Level 8.8 MG/DL Alkaline Phosphatase 123 U/L Aspartate Amino Transf (AST/SGOT) 25 U/L Alanine Aminotransferase (ALT/SGPT) 33 U/L Total Bilirubin 0.4 MG/DL Sodium Level 134 MEQ/L Potassium Level 3.6 MEQ/L Chloride Level 102 MEQ/L Carbon Dioxide Level 19.7 MEQ/L Anion Gap 12 MEQ/L Estimat Glomerular Filtration Rate 79 ML/MIN Lactic Acid Level 0.8 mmol/L Lipase 122 U/L Urine Color YELLOW Urine Turbidity CLEAR Urine pH 6.0 Urine Specific [place] 1.040 Urine Protein 100 mg/dL Urine Glucose (UA) 1000 mg/dL Urine Ketones 150 mg/dL Urine Occult Blood NEG Urine Nitrite NEG Urine Bilirubin NEG Urine Urobilinogen LESS THAN 2.0 MG/DL Urine Leukocyte Esterase NEG Urine RBC LESS THAN 1 /hpf Urine WBC LESS THAN 1 /hpf Urine Mucus FEW /lpf Microscopic Urinalysis Comment CULT NOT INDICATED MDM Supervised Visit with ALLI: Yes Narrative Course The history, exam, and medical decision-making in the associated mid-level provider note were completed with my assistance. I reviewed and agree with the findings presented. I attest that I had a [id number] encounter with the patient on the same day, and personally performed and documented my assessment and findings in the medical record. *My assessment and Findings: A 51-year-old man who presents to the emergency department with recurrent abdominal pain with nausea vomiting. This seems to be at least partly anxiety mediated. He looks well. His labs are unremarkable. Recent CT scans negative. Recommend supportive treatment. Disposition: 01 DISCHARGE HOME Condition: Stable Amos Dallas MD Nov 15, 2016 21:44
--- NOTE | 2016-11-16 12:54 | EKG ---
Date Performed: 11/15/2016 Time Performed: 18:28:33 PTAGE: 51 years EKG: SINUS TACHYCARDIA NONSPECIFIC T-WAVE ABNORMALITY ABNORMAL RHYTHM ECG NO PREVIOUS TRACING DOCTOR: Sylvester Cote Interpretating Date/Time 11/16/2016 12:52:28
== END 2016-11-15 22:17 | disposition home or self-care (01) ==
LOC: NEPE 17:43
DX: R10.9 Unspecified abdominal pain (principal); R11.2 Nausea with vomiting, unspecified; R00.0 Tachycardia, unspecified; R94.31 Abnormal electrocardiogram [ECG] [EKG]; E11.9 Type 2 diabetes mellitus without complications; I10 Essential (primary) hypertension; J45.909 Unspecified asthma, uncomplicated; F41.9 Anxiety disorder, unspecified; K58.9 Irritable bowel syndrome, unspecified
CPT/HCPCS: 80053; 81001; 83605; 83690; 85007; 85027; 93005; 96374; 96375; 99284; J2060

== ENCOUNTER 2016-12-18 04:20 | Emergency (ER) | payer SELFPAY ==
[~2016-12-18] VITALS: Ht 165.1 cm; Wt 120.5 kg
[~2016-12-18 04:20] MED LIST changes: -AMOX500T PO; -CITA-48 PO; -CITA20TA4 PO; -CLON.1 PO; -CORTIS10A RIGHT EAR; -LISI-357 PO; +LITH150C PO; -LORTA5 PO; -PROZ20CA11 PO; -ZOCO40TA PO
[2016-12-18 04:27] VITALS: BP 194/95; PULSE 106; RESP 12; TEMP 98.5; O2SAT 97
[2016-12-18 04:46] VITALS: BP 160/104; PULSE 104; RESP 18; TEMP 98.5; O2SAT 96
[2016-12-18] MEDS ORDERED: INSULIN HUMAN REGULAR 1,000 UNITS/10 ML VIAL IV PUSH ONE ×2 (05:00→05:45)
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
[2016-12-18] MEDS: SODIUM CHLOR 0.9% 1000 ML INJ 1,000 ML IV SCH ×2 (05:10→05:51)
[2016-12-18] MEDS ORDERED: GLIP5TAB8 PO (05:15)
[2016-12-18] MEDS ORDERED: ONDANSETRON HCL 4 MG/2 ML VIAL IV ONE (05:15)
[2016-12-18 05:38] LABS: AUTOMATED NEUTROPHIL # 3.3 TH/MM3 (1.8-7.7); BASOPHIL % 0.7 % (0.0-2.0); EOSINOPHIL # 0.3 TH/MM3 (0-0.4); EOSINOPHIL % 4.3 % (0.0-4.0); HEMATOCRIT 48.1 % (39.0-51.0); HEMO FLAGS DIFF FINAL; LYMPH % 30.6 % (9.0-44.0); LYMPHOCYTE # 1.9 TH/MM3 (1.0-4.8); MEAN CORPUSCULAR HGB CONC 34.1 % (32.0-36.0); MONO % 12.6 % (0.0-8.0); NEUT % 51.8 % (16.0-70.0); PLATELET COUNT 289 TH/MM3 (150-450); RED BLOOD COUNT 5.29 MIL/MM3 (4.50-5.90); WHITE BLOOD COUNT 6.3 TH/MM3 (4.0-11.0)
[2016-12-18 05:46] LABS: POTASSIUM 3.6 MEQ/L (3.5-5.1)
[2016-12-18 05:48] LABS: BICARBONATE 21.4 MEQ/L (21.0-32.0)
[2016-12-18] MEDS ORDERED: glipiZIDE 10 MG TAB PO ONE (06:00)
[2016-12-18 06:12] VITALS: BP 179/73; PULSE 95; RESP 16; O2SAT 99
== END 2016-12-18 07:00 | disposition home or self-care (01) ==
LOC: PHED 04:20
DX: E11.65 Type 2 diabetes mellitus with hyperglycemia (principal); Z79.4 Long term (current) use of insulin
CPT/HCPCS: 80048; 85025; 96361; 96374; 96375; 96376; 99284; J1815; J2405; J7030

== ENCOUNTER → 2017-05-13 | Emergency (ER) | payer SELFPAY ==
[~2017-05-13] VITALS: Ht 165.1 cm; Wt 126.0 kg
[~2017-05-13] MED LIST changes: +ASPIRIN 81 MG CHEW TAB PO ONE; -CLON1TAB PO; -CYCL5TAB PO; +HEPARIN SODIUM - IV 10,000 UNITS/10 ML VIAL IV PUSH ONE; +HEPARIN SODIUM - IV 10,000 UNITS/10 ML VIAL IV PUSH PRN; +HEPARIN-D5W 25,000 U/250 ML 250 ML IV PRN; +NITROGLYCERIN 2% OINT 1 GM PACKET TOPICAL ONE; +ONDANSETRON HCL 4 MG/2 ML VIAL IV PUSH ONE; +SODIUM CHLORIDE 0.9% FLUSH 10 ML FLUSH IVF PRN; -TRAM50TA PO; -VYTO10TA8 PO
[2017-05-13 14:34] VITALS: BP 226/104; PULSE 104; RESP 16; TEMP 98.2; O2SAT 96
[2017-05-13 14:57] VITALS: O2SAT 96
--- NOTE | 2017-05-13 15:29 | RADRPT ---
EXAM DATE/TIME: 05/13/2017 15:03 [facility] COMPARISON: CHEST SINGLE AP, November 11, 2016, 6:39. INDICATIONS : Chest pain for 1 hour MEDICAL HISTORY : None. SURGICAL HISTORY : None. ENCOUNTER: Initial ACUITY: 1 day PAIN SCORE: 7/10 LOCATION: Left chest FINDINGS: There is a poor inspiratory result. The cardiac silhouette is minimally prominent. The pulmonary vasc ular pattern is normal. The lungs are clear. CONCLUSION: Poor inspiratory result. No focal infiltrate or pulmonary vascular congestion. Landen Flores MD on May 13, 2017 at 15:25 Board Certified Radiologist. This report was verified electronically.
[2017-05-13 15:37] LABS: CALCIUM 8.3 MG/DL (8.5-10.1)
[2017-05-13 15:38] LABS: MAGNESIUM 2.2 MG/DL (1.5-2.5)
[2017-05-13 15:41] LABS: CREATININE 0.81 MG/DL (0.60-1.30)
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
[2017-05-13 15:46] LABS: TROPONIN I 0.13 NG/ML (0.02-0.05)
[2017-05-13 15:53] LABS: AUTOMATED NEUTROPHIL # 3.5 TH/MM3 (1.8-7.7); BASOPHIL # 0.1 TH/MM3 (0-0.2); BASOPHIL % 1.5 % (0.0-2.0); EOSINOPHIL # 0.3 TH/MM3 (0-0.4); EOSINOPHIL % 4.1 % (0.0-4.0); HEMATOCRIT 46.7 % (39.0-51.0); LYMPH % 29.1 % (9.0-44.0); LYMPHOCYTE # 1.9 TH/MM3 (1.0-4.8); MEAN CELL VOLUME 94.4 FL (80.0-100.0); MEAN CORPUSCULAR HEMOGLOBIN 32.3 PG (27.0-34.0); MEAN CORPUSCULAR HGB CONC 34.2 % (32.0-36.0); MEAN PLATELET VOLUME 7.8 FL (7.0-11.0); MONO % 8.6 % (0.0-8.0); MONOCYTE # 0.6 TH/MM3 (0-0.9); NEUT % 56.7 % (16.0-70.0); PLATELET COUNT 355 TH/MM3 (150-450); RED BLOOD COUNT 4.95 MIL/MM3 (4.50-5.90); RED CELL DISTRIBUTION WIDTH 12.3 % (11.6-17.2); WHITE BLOOD COUNT 6.4 TH/MM3 (4.0-11.0)
[2017-05-13 16:20] VITALS: BP 202/103; PULSE 94; RESP 16
--- NOTE | 2017-05-14 14:07 | EKG ---
Date Performed: 05/13/2017 Time Performed: 15:12:28 PTAGE: 51 years EKG: Sinus rhythm POSSIBLE LEFT ATRIAL ENLARGEMENT NONSPECIFIC ST & T-WAVE ABNORMALITY BORDERLINE ECG Since the PREVIOUS TRACING , no significant change noted PREVIOUS TRACIN11/15/2016 18.28 DOCTOR: Tasneem Walters Interpretating Date/Time 05/14/2017 13:57:50
== END | disposition home or self-care (01) ==
LOC: PHED 14:26
DX: R10.13 Epigastric pain (principal); R94.39 Abnormal result of other cardiovascular function study; R07.9 Chest pain, unspecified; E11.9 Type 2 diabetes mellitus without complications; Z79.4 Long term (current) use of insulin; Z79.899 Other long term (current) drug therapy
CPT/HCPCS: 71046; 80048; 83690; 83735; 84484; 85025; 93005; 99291; J2405